=== PATIENT | male | born 1970 | race Caucasian/White ===

== ENCOUNTER 2022-02-11 09:31 | Outpatient (CLI) | payer BC | END 2022-02-11 09:32 | disposition home or self-care (01) | LOC: CSHULT 09:31 | PROVIDERS: ATTEND Internal Medicine Gastroenterology | DX: B18.1 Chronic viral hepatitis B without delta-agent (principal); K76.0 Fatty (change of) liver, not elsewhere classified | CPT/HCPCS: 76705 ==

== ENCOUNTER 2022-09-14 08:46 | Outpatient (CLI) | payer BC | END 2022-09-14 08:47 | disposition home or self-care (01) | LOC: CSHULT 08:46 | PROVIDERS: ATTEND Internal Medicine Gastroenterology | DX: B18.1 Chronic viral hepatitis B without delta-agent (principal); K76.0 Fatty (change of) liver, not elsewhere classified; K82.8 Other specified diseases of gallbladder | CPT/HCPCS: 76705 ==